=== PATIENT | male | born 1945 | race Caucasian/White ===

== ENCOUNTER 2024-01-25 05:57 | Observation (INO) ==
--- NOTE | 2023-12-23 11:03 | PAT Medication Instructions ---
Medication Instructions Date of Service December 23, 2023 Home Medications ascorbic acid (vitamin C) 500 mg tablet (Vitamin C) 500 mg PO BID aspirin 81 mg capsule 81 mg PO QAM atorvastatin 40 mg tablet 40 mg PO HS buspirone 10 mg tablet 10 mg PO BID cholecalciferol (vitamin D3) 50 mcg (2,000 unit) capsule (Vitamin D3) 50 mcg PO QAM cyanocobalamin (vitamin B-12) 1,000 mcg tablet (Vitamin B-12) 1,000 mcg PO QAM empagliflozin 25 mg tablet (Jardiance) 25 mg PO QAM glipizide 5 mg tablet, extended release 24 hr 5 mg PO QAM lisinopril 5 mg tablet 5 mg PO BID metformin 1,000 mg tablet 1,000 mg PO BID pioglitazone 45 mg tablet 45 mg PO QAM semaglutide 1 mg/dose (4 mg/3 mL) subcutaneous pen injector (Ozempic) 4 mg subcut Q7D tamsulosin 0.4 mg capsule 0.4 mg PO QAM STOP 7 days before surgery semaglutide 1 mg/dose (4 mg/3 mL) subcutaneous pen injector (Ozempic) 4 mg subcut Q7D STOP 3 days before surgery empagliflozin 25 mg tablet (Jardiance) 25 mg PO QAM ASK your prescriber and surgeon aspirin 81 mg capsule 81 mg PO QAM DO NOT take the morning of surgery ascorbic acid (vitamin C) 500 mg tablet (Vitamin C) 500 mg PO BID cholecalciferol (vitamin D3) 50 mcg (2,000 unit) capsule (Vitamin D3) 50 mcg PO QAM cyanocobalamin (vitamin B-12) 1,000 mcg tablet (Vitamin B-12) 1,000 mcg PO QAM glipizide 5 mg tablet, extended release 24 hr 5 mg PO QAM lisinopril 5 mg tablet 5 mg PO BID metformin 1,000 mg tablet 1,000 mg PO BID pioglitazone 45 mg tablet 45 mg PO QAM Take morning of surgery With a small sip of water, OTHERWISE NOTHING TO EAT OR DRINK AFTER MIDNIGHT: buspirone 10 mg tablet 10 mg PO BID tamsulosin 0.4 mg capsule 0.4 mg PO QAM Take evening before surgery ascorbic acid (vitamin C) 500 mg tablet (Vitamin C) 500 mg PO BID atorvastatin 40 mg tablet 40 mg PO HS buspirone 10 mg tablet 10 mg PO BID lisinopril 5 mg tablet 5 mg PO BID metformin 1,000 mg tablet 1,000 mg PO BID Other Notes If you have any questions please call us at [phone] or [phone] or [phone] or [phone]
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
[2024-01-25] MEDS ORDERED: BUPIVACAINE 0.5 % 5 MG/1 ML PF 10ML VIAL ONE (06:27)
[2024-01-25] MEDS ORDERED: ROPIVACAINE 0.5% 5 MG/ML 30 ML VIAL ONE (06:28)
--- NOTE | 2024-01-25 06:36 | History & Physical Bridge Note ---
Date of Service January 25, 2024 History & Physical Bridge Note I have examined the patient, reviewed the History & Physical and in the interval since the performance of the History & Physical I have noted the following changes of clinical significance: no changes noted
[2024-01-25] MEDS: ACETAMINOPHEN 500 MG TAB PO SCH ×2 (07:07→14:44)
[2024-01-25] MEDS: METOCLOPRAMIDE HCL 10 MG TABLET PO SCH (07:08)
[2024-01-25] MEDS: FAMOTIDINE 20 MG TAB PO SCH (07:08)
[2024-01-25] MEDS: CeleBREX 200 MG CAP PO SCH (07:08)
[2024-01-25] MEDS: LR 60ML/HR IV SCH (07:08)
[2024-01-25] MEDS ORDERED: PROPOFOL IV EMULSION 10 MG/ML 20 ML VIAL IV ONE (07:12)
[2024-01-25] MEDS ORDERED: fentaNYL citrate PF 100 MCG/2 ML VIAL ONE (07:12)
[2024-01-25] MEDS ORDERED: MIDAZOLAM HCL 1 MG/ML 2ML VIAL ONE ×2 (07:12→07:37)
[2024-01-25] MEDS: LR 500ML BOLUS, THEN 15ML/HR IV SCH (07:25)
[2024-01-25] MEDS ORDERED: ePHEDrine sulfate 50 MG/ML AMP IV PRN (08:47)
[2024-01-25] MEDS ORDERED: HYDROmorphone INJ 1 MG/ML SYRINGE IV PRN (08:47)
[2024-01-25] MEDS ORDERED: ATROPINE SULFATE 0.1 MG/ML 10ML SYR IV PRN (08:47)
[2024-01-25] MEDS ORDERED: fentaNYL citrate PF 100 MCG/2 ML VIAL IV PRN (08:47)
[2024-01-25] MEDS ORDERED: ONDANSETRON INJ 2 MG/ML 2 ML VIAL IV PRN ×2 (08:47→11:27)
[2024-01-25] MEDS: ceFAZolin 2000MG 2,000 MG/15 ML SYR IV SCH ×2 (08:55→16:37)
[2024-01-25] MEDS: TRANEXAMIC ACID 1,000 MG **IV Intra-op IV SCH (09:48)
[2024-01-25] MEDS: ORTHO JOINT ANESTHETIC ONE (09:50)
[2024-01-25] MEDS: ROPIV 0.5% 246mg, Ketorolac 30mg, EPINEPHrine 0.5mg in NSS INFIL SCH (09:50)
--- NOTE | 2024-01-25 10:42 | Operative Report ---
PG Post Operative Report Pre & Post Diagnosis Operation Date: 01/25/24 08:50 Pre-Op Diagnosis: Right Knee Degenerative Joint Disease Post-Op Diagnosis: Right Knee Degenerative Joint Disease I identified the patient and participated in the time-out.: Yes Procedure Operation Date: 01/25/24 08:50 Actual Procedures p Right Total Knee Arthroplasty(Right) - Tonny Harris MD Surgeon Tonny Harris MD Manager Parking Jimenez Thomas PA-C Estimated Blood Loss 50 Findings Consistent with Post-Op Diagnosis Specimens Right knee sent for pathology. Anesthesia Type Spinal MAC Complications none Disposition Accompanied Patient To Recovery: No Indications Patient is a 78-year-old gentleman whose had a long history of gradual progressive increasing right knee pain and discomfort. He has been through extensive conservative treatment the past which became less successful. X-rays show advanced medial compartment arthritis. He elected proceed with surgical treatment. Description of Procedure Operative implants consists of: 1. Biomet Vanguard size 67.5 right posterior stabilized femoral component. 2. Biomet size 75 tibial tray. 3. 10 mm posterior stabilized polyethylene plus insert. 4. 31 x 8 all poly patella. The patient was taken the operating, identified, placed on the operating table in the supine position. All contact areas were appropriately padded. IV antibiotics tried by anesthesia team. A spinal anesthetic and adductor canal block had been provided in the holding area. A right thigh turn was then placed. The right lower extremity was then prepped and draped in usual sterile fashion. The right leg was elevated and exsanguinated with use of an Esmarch and a tourniquet was placed at 300 mmHg. An anterior approach of the right knee was then performed to longitudinal incision centered over the patella. Sharp dissection was got through subcutaneous tissue down to level of the extensor mechanism. A medial parapatellar arthrotomy incision was made. Some subpe riosteal dissection was carried out medially. The fat pad was resected from the patella tendon. Lateral patellofemoral ligament was released. The patella was subluxated laterally and the knee was flexed. The osteophytes taken off distal femur. The ACL and PCL were then released from the distal femur and the tibia subluxated anteriorly. The external treatment LYMErix then placed on the anteri or face the tibia and adjusted 14 mm medially. Proximal tibial cut was made remove out of millimeter bone from the most efficient aspect medial tibial plateau. Some osteophytes were taken off medially. The tibia was then sized to a size 75. The AP cutting block was pinned parallel to the epicondylar axis. The epicondylar axis was 3 degrees of external rotation. The anterior cut, anterior chamfer, posterior cut, posterior chamfer cuts were made. The box cutting guide was placed and adjusted slightly laterally. The box cut was made. The knee was flexed. The remnants of the medial and lateral menisci were excised. The osteophytes taken off the posterior aspect the femur. A trial femoral component was placed. The tibial tray was pinned Kellie external rotation and the drill and stem punch were used to create defect in proximal tibia for the tibial tray. The knee was then trialed and the 10 mm insert fit most appropriately. There is a little bit of laxity in extension due to his varus deformity preoperatively if so we elect to use a PS plus insert. Attention drawn the patella. The patella was cleaned of all soft tissues. Patella thickness measured 21 mm in thickness was cut down to 13. Was sized to a size 31 patella. The lug holes were drilled for 31 patella. The lateral osteophytes removed. Patella button was placed. Knee was taken through range of motion and the patella tracked nicely with no thumbs test. Attention was then drawn toward placing the permanent components. All trial components were removed. Bone plug was placed into this femur limit blood loss. A double batch Palacos G cement was mixed. Biomet Vanguard size 67.5 right posterior stabilized femoral component, size 75 tibial tray, a 10 mm PS plus insert, and a 31 x 8 all poly patella then cemented in place. The knee was brought out into full extension till cement hardened. Final cement check was then performed. The pericapsular tissues were injected with total 100 cc of Ortho mix. The patient did receive 1 g tranexamic acid. The tourniquet was then let down for final tourniquet time 55 minutes. Hemostasis assured with electrocautery. Extensor Metros then closed with combination 1 PDS suture and 1 Vicryl suture in a [id number] fashion. Extensor Meclomen checked found be intact. Subcutaneous tissue then closed with 2 Dexon suture in a buried interrupted fashion skin was closed skin danielle. Leg was then cleaned and dried and a sterile dressing with Xeroform, 4 fours, sterile cast padding, Babak bandage were applied. The patient was then transferred to the recovery room in stable condition. Patient tolerated procedure well and there were no complications. Jimenez Thomas, my physician child development assistant, was present for the entire procedure. His assistance was essential and required for appropriate patient positioning, prepping and draping, surgical exposure, performing the technical details of the operation, placement the implants, closure of the wound, and placement of the sterile bandage. I attest to the content of the Intraoperative Record and any orders documented therein. Any exceptions are noted below.
--- NOTE | 2024-01-25 11:02 | XRay Report ---
XR knee RT 1 or 2V routine HISTORY: 78 years-old Male Surgical Post Op right knee arthroplasty COMPARISON: 11/25/2023 TECHNIQUE: 2 views of the right knee FINDINGS: Total joint arthroplasty with patellar resurfacing. Anterior midline skin danielle with expected posto perative soft tissue swelling and deep tissue air. No acute fracture or unexpected opaque foreign bod y. IMPRESSION: Total joint arthroplasty with expected postoperative changes. ACT 112: Negative or not required by law. The above report was generated using voice recognition software. It may contain grammatical, syntax o r spelling errors. Electronically signed by: Hardik Rashid M.D. 01/25/2024 11:01 AM
[2024-01-25] MEDS ORDERED: PHARMACY GLYCEMIC MGMT CONSULT PRN (11:27)
[2024-01-25] MEDS ORDERED: HYDROmorphone INJ 0.5 MG/0.5 ML SYR IV PRN (11:27)
[2024-01-25] MEDS ORDERED: bisacodyL 10 MG SUPP PR PRN (11:27)
[2024-01-25] MEDS ORDERED: NALOXONE HCL 0.4 MG/1 ML VIAL/CARP IV PRN (11:27)
[2024-01-25] MEDS ORDERED: GLUCAGON FOR INJ 1 MG VIAL SQ PRN (11:27)
[2024-01-25] MEDS ORDERED: GLUCOSE 10 TAB/TUBE PO PRN (11:27)
[2024-01-25] MEDS ORDERED: MAGNESIUM HYDROXIDE SUSP 30 ML UDC PO PRN (11:27)
[2024-01-25] MEDS ORDERED: GLUCOSE 40% GEL 15 GM TUBE PO PRN (11:27)
[2024-01-25] MEDS ORDERED: CARBOHYDRATES FOR HYPOGLYCEMIA PO PRN (11:27)
[2024-01-25] MEDS ORDERED: ALUMINUM/MAGNESIUM SUSP 30 ML UDC PO PRN (11:27)
[2024-01-25] MEDS ORDERED: METOCLOPRAMIDE HCL INJ 5 MG/ML 2 ML VIAL IV PRN (11:27)
[2024-01-25] MEDS ORDERED: DEXTROSE 50% 50 ML SYRINGE IV PRN (11:27)
[2024-01-25] MEDS: INSULIN ASPART PER UNIT CHARGE SC SCH (12:40)
[2024-01-25] MEDS: LANTUS PER UNIT CHARGE SC ONE (12:40)
[2024-01-25] MEDS: KETOROLAC TROMETHAMINE 15 MG/ML VIAL IV SCH (12:41)
--- NOTE | 2024-01-25 14:27 | Pharmacy Report ---
Pharmacy Glycemic Short Note 2 - Date of Service January 25, 2024 - Glycemic Short BSG Results (Last 24 hours): 01/25/24 01/25/24 01/25/24 07:01 10:40 11:37 POC Glucose 188 H 162 H 177 H OUTPATIENT ANTIDIABETIC REGIMEN: * Jardiance 25 mg daily, glipizide 5 mg daily, metformin 1 gm bid, pioglitazone 45 mg daily, ozempic ASSESSMENT: * 78 year old s/p surgery, POD 0 - pharmacy consulted for glycemic management. Postop BSG >170 - will start novolog weight based stress 2 dosing. Will give one time dose of Lantus 0.2 units/kg. Patient on several oral medications at home - will hold for now and utilize both basal/bolus during hospital stay. PLAN FOR INPATIENT GLYCEMIC CONTROL: * Hold outpatient oral diabetes medications * Basal insulin * Lantus 15 units x 1 * Bolus insulin * NovoLog per scale ACHS or Q6hrs while NPO * Goal Range: Low 110 mg/dL - High 140 mg/dL * Correction Factor: 25 mg/dL/unit * Nutritional / Prandial insulin per carb ratio of 1 unit per 8 grams CHO consumed
--- NOTE | 2024-01-25 15:06 | Anesthesiology Progress Note ---
Date of Service January 25, 2024 Anesthesia Post Procedure Vital Signs Vital Signs: Temp Pulse Pulse Resp BP Pulse Ox O2 Del Method 01/25/24 14:20 36.6 C 55 L 18 128/58 L 98 Room Air 01/25/24 13:22 36.6 C 54 L 16 122/59 L 97 Room Air 01/25/24 12:25 36.4 C L 54 L 18 122/65 95 Room Air 01/25/24 11:53 36.4 C L 54 L 18 126/69 97 Room Air 01/25/24 11:25 36.7 C 53 L 18 112/59 L 97 Room Air 01/25/24 11:05 36.2 C L 58 L 14 112/52 L 96 Room Air 01/25/24 10:55 36.2 C L 64 18 125/53 L 97 Oxymask 01/25/24 10:45 58 L 16 100/49 L 97 Oxymask 01/25/24 10:35 36.2 C L 63 14 98/51 L 96 Oxymask 01/25/24 06:40 36.7 C 66 20 136/62 95 Room Air O2 Flow Rate 01/25/24 14:20 01/25/24 13:22 01/25/24 12:25 01/25/24 11:53 01/25/24 11:25 01/25/24 11:05 01/25/24 10:55 1 01/25/24 10:45 3 01/25/24 10:35 5 01/25/24 06:40 Pain Intensity Right Knee: Pain Intensity: 1 Transfer of Care Handoff Completed per policy Notes Mental Status: alert / awake / arousable and participated in evaluation Nausea / Vomiting: adequately controlled Pain: adequately controlled Airway Patency, RR, SpO2: stable & adequate BP & HR: stable & adequate Hydration State: stable & adequate Anesthetic Complications: no major complications apparent and Pt Satisfied with anesthetic care
[2024-01-25] MEDS: TRANEXAMIC ACID / 0.7% NACL 1,000 MG/100 ML BAG IV SCH (16:25)
[2024-01-25] MEDS: busPIRone 5 MG TAB PO SCH (20:31)
[2024-01-25] MEDS: DOCUSATE SODIUM 100 MG CAP PO SCH (20:32)
[2024-01-25] MEDS: SENNA 8.6 MG TAB PO SCH (20:32)
[2024-01-25] MEDS: ASPIRIN 81 MG ECTAB PO SCH (20:33)
[2024-01-25] MEDS: ATORVASTATIN 40 MG TAB PO SCH (20:33)
[2024-01-25] MEDS: lisinopril 5 MG TAB PO SCH (20:34)
[2024-01-25] MEDS: ASCORBIC ACID 500 MG TAB PO SCH (20:34)
[2024-01-25] MEDS: oxyCODONE HCL IR 5 MG TAB (IMMEDIATE RELEASE) PO PRN (20:34)
[2024-01-25] MEDS ORDERED: SENNA 8.6 MG TAB PO SCH (21:00)
[2024-01-25 21:39] VITALS: RESP 16
[2024-01-26] MEDS ORDERED: MELATONIN 3 MG TAB PO PRN (01:38)
[2024-01-26 05:50] LABS: Hematocrit (blood only) 33.7 % (42.0-52.0); Hemoglobin 11.3 g/dl (14.0-18.0); Mean Corpuscular Hemoglobin 31.9 pg (25.0-34.0); Mean Corpuscular Hgb Conc 33.5 g/dL (32.0-36.0); Mean Corpuscular Volume 95.2 fL (80.0-100.0); Mean Platelet Volume 9.2 fL (9.4-12.4); Platelet Count 149 K/uL (130-400); RDW Coefficient of Variation 15.1 % (11.5-14.5); RDW Standard Deviation 52.4 fL (36.4-46.3); Red Blood Count 3.54 M/uL (4.70-6.10); White Blood Count 11.44 K/ul (4.8-10.8)
[2024-01-26 06:05] LABS: BUN Creatinine Ratio 28.9 (10-20); Calcium 8.6 mg/dl (8.6-10.3); Creatinine Clr Calc Pharmacy 89.3 ml/min; Potassium 3.7 mmol/L (3.5-5.1)
[2024-01-26 06:57] VITALS: PULSE 66; TEMP 98.4; O2SAT 97
--- NOTE | 2024-01-26 07:12 | Orthopedic Progress Note ---
Date of Service January 26, 2024 Assessment & Plan (1) Status post right knee replacement: Plan: 78-year-old gentleman postop day 1 from right knee replacement. He is doing reasonably well. His pain has been controlled. He is neurologically intact. Plan: 1. DVT prophylaxis including thigh-high teds, SCDs, aspirin twice a day. 2. PT/OT. Weight-bear as tolerated. Right total knee protocol. 3. Pain control. Doing okay with current pain regimen. 4. Disposition. Plan to discharge to home with some home health if he does okay in therapy today. Admission and Anticipated Discharge Date Admission Date: January 25, 2024 Subjective 78-year-old gentleman postop day 1 from a right knee replacement. He is doing okay. Did not get much sleep last night. Pains been pretty well-controlled. No chest pain or shortness of breath. Not feeling dizzy or lightheaded. Physical Exam Physical Exam: Physical nation was a pleasant middle-age male. He is lying bed looks pretty comfortable. Examination of the right leg reveals leg to be well aligned. Dressings clean dry and intact. He can dorsiflex and plantarflex his foot appropriately. He is neurologically intact. Respiratory: normal respiratory effort, lungs clear to auscultation Cardiovascular: RRR, no murmur, no edema Gastrointestinal (Abdomen): normal bowel sounds, soft, nontender, no hepatosplenomegaly Results & Data Vital Signs (Past 12 Hours) Vital Signs Temp Pulse Resp BP BP Pulse Ox O2 Del Method 01/26/24 06:54 36.9 C 66 16 131/57 L 97 Room Air 01/26/24 03:00 36.8 C 55 L 16 138/73 96 Room Air 01/25/24 23:13 36.3 C L 54 L 16 122/64 97 CPAP 01/25/24 21:40 CPAP 01/25/24 20:22 36.6 C 60 16 137/61 95 Room Air Laboratory Results Hemoglobin is 11.3. Hematocrit is 33.7. Electrolytes are stable.
[2024-01-26] MEDS: dexAMETHasone 10 MG in SYRINGE 0 ML IV SCH (07:32)
[2024-01-26] MEDS: MULTIVITAMIN TAB PO SCH (08:21)
[2024-01-26] MEDS: CYANOCOBALAMIN (B-12) 500 MCG TABLET PO SCH (08:22)
[2024-01-26] MEDS: TAMSULOSIN HCL 0.4 MG CAP PO SCH (08:22)
[2024-01-26] MEDS: CHOLECALCIFEROL 25 MCG (1000 UNITS) TAB PO SCH (08:22)
[2024-01-26] MEDS: LANTUS PER UNIT CHARGE SC SCH (08:30)
[2024-01-26] MEDS ORDERED: PIOGLITAZONE 45 MG PO SCH (09:00)
[2024-01-26] MEDS ORDERED: TAMSULOSIN HCL 0.4 MG CAP PO SCH (09:00)
[2024-01-26] MEDS ORDERED: EMPAGLIFLOZIN 25 MG TAB PO SCH (09:00)
[2024-01-26 10:08] VITALS: BP 137/61
--- NOTE | 2024-01-28 06:54 | Discharge Summary ---
Date of Service January 28, 2024 Admission HPI (Per Admitting) . The patient is a 78-year-old gentleman now presents for surgical treatment of his right knee. He is got a several history of increasing right knee pain discomfort that is gradually gotten worse over time. He has been treated by Dr. Austin most recently with an injection which helped him just for a couple days. Pain is mostly medial. Is getting worse. It is limiting his activities. He cannot walk more than a couple blocks without significant pain. He would like to proceed with a right knee replacement. Of note, the patient has a history of the left ankle arthritis and had a left ankle fusion done by myself about 12 years ago. He is done well from this. Admission Exam (Per Admitting) . Physical examination of reveals a pleasant healthy appearing male. Looks to be in pretty good health. Examination of the right knee reveal patient ambulates independently. Got varus alignment to his knee. He does have a varus thrust with weightbearing. He is tender over the medial joint line. She got some bony hypertrophy medially. Small knee effusion. Range of motion about 10 degrees show full extension to 120 degrees of flexion. No instability. No particular pain with hip motion. He is neurologically intact. Principal Diagnosis Same as "Discharge Diagnosis" noted below under Discharge Instructions. Discharge Data Procedures Performed Operation Date: 01/25/24 08:50 Actual Procedures p Right Total Knee Arthroplasty(Right) - Tonny Harris MD Ordered Studies 01/25/24 05:00 US - OR guided needle placemen Routine Hospital Course (1) Status post right knee replacement: This is a 78 year old patient admitted on 01/25/24 and underwent total knee arthroplasty. He tolerated the procedure well and there were no complications. Transferred to the PACU post op and later to the orthopedic floor for further care. He was given ancef for antibiotic prophylaxis. He was also given YU st ockings, SCDs, and aspirin for DVT prophylaxis. Hemoglobin, hematocrit, and vital signs were monitored during his hospital stay and remained stable. Did not require any blood transfusions. There were no complications during his hospital stay. By post op day #1 the patient was tolerating a diabetic diet, pain was reasonably controlled with oral pain medicine, and he was participating in physical therapy. On post op day #1 the patient was discharged home and set up with home health care. He was given printed discharge instructions including prescriptions for extra strength tylenol, aspirin, cefadroxil, ketorolac, zofran, oxycodone, senokot, and flomax. Continue physical therapy, weight bearing as tolerated. Continue YU stockings. Follow up approximately 2 weeks post op or sooner if there are problems or concerns. Discharge Plan Discharge Items Patient Disposition: Home - Home Health Services Reason For Visit: Right Knee Osteoarthritis Discharge Diagnosis: Right Knee Replacment Activity: Per Instructions section Weightbearing: Full weightbearing Non-emergency contact: Surgeon Call non-emergency contact if: you have any medication questions Follow-up/Referrals: PCP,NO [Physician] - Diet: Carb Consistent or DM2 Addtl Attending Provider Instructions: ACTIVITY RECOMMENDATIONS: Diet: * You may resume previous diet. Physical Therapy: * You will go to physical therapy three times each week for four to six weeks after your surgery in order to regain your knee range of motion and to retrain your knee to work properly. * It is just as important to make sure you are getting your knee perfectly straight as it is to regain your knee bend. * Taking a pain pill an hour before therapy can help you have a more productive and comfortable therapy session. Home Exercise: * You were shown a series of exercises (heel props, heel slides, etc.) in the hospital. Do these exercises three to four times each day including the exercises you were shown in physical therapy. Walking: * Get up and walk several times each day. For the first four weeks, try not to stand or walk for more than one hour at a time. If you do stand or walk for more than one hour, you will not hurt anything, but your knee and leg will likely swell. * As you feel comfortable, you may change from the walker or crutches to a cane and then to independent walking. MEDICATIONS: New Medicine: * You will likely be taking one or more of these medications: 1. Oxycodone - A quick and shorter-acting pain medication. Take one to two tablets every six hours to lessen your pain. 2. Aspirin - Thins your blood to lessen the chance of forming a blood clot. * The most common side effects of pain medicine and iron are nausea and constipation. If nausea or constipation is too much of a problem or if you have any questions about your new medicines or doses, call [facility] at . We will try to help you manage these issues. "VERY IMPORTANT TO READ AND REVIEW" Pain: * The immediate post-operative period after knee replacement surgery is often quite painful. * You are given a prescription for pain medicine. You should take it, as directed, when you need it, especially before physical therapy and before going to bed. Pain that interferes with sleep is very common and can last several months. * You will likely need pain medicine for the first four to six weeks. It will not stop all of the pain. The pain will lessen and as you feel better, you may change to milder pain medicine such as Tylenol. * The most common side effects of pain medicine are nausea and constipation, so don't take more than you need. SPECIAL CARE INSTRUCTIONS: TEDs/Elastic Stockings: * The white elastic stockings help limit swelling and prevent blood clots from forming in your legs. The more you wear them, the more they work. * Wear them for six weeks after knee replacement surgery and four weeks after partial knee replacement. Incision Site Care: * Remove dressing postoperative day 2 and then shower. Keep direct shower pressure off the incision site. * After showering, cover danielle with dry gauze and change daily or more frequently if the dressing is getting saturated with drainage. * Use the YU stockings to hold dressing in place. DO NOT apply tape on the skin. * May completely stop using bandage if wound is dry and no drainage * Danielle are removed between 2 and 3 weeks post-op. If your follow-up appointment is made before 2 weeks, please have your appointment re- scheduled. It is too early to remove the danielle. Prevention of Infection: * Take antibiotics one hour before any dental cleaning, dental work, urological procedure, gastrointestinal procedure or any invasive surgery in order to prevent your new joint from getting infected. * You may get the antibiotics from the doctor performing the procedure or you may call our office at [phone] before and we will call in a prescription to the pharmacy of your choice. Things to Watch For: * Drainage from the incision site that occurs more than one week after your surgery. * Severely increased knee/leg pain or swelling. * Increased redness at the incision site. * Fever above 102 degrees Fahrenheit. * Unusual chest pain or shortness of breath. * Unusual pain or burning with urination. Call [facility] at [phone] with any of the above problems or if you have any questions about your medicines or recovery. FOLLOW UP VISIT: Make an appointment to see your doctor for approximately two weeks after surgery for a progress check and staple removal by calling the office at [phone]. Pending Studies at Discharge: No Stand-Alone Forms: My [facility], Smoking Cessation Medications and DC Order Prescriptions: Continued oxycodone 5 mg tablet 5 - 10 mg PO Q6 PRN (Reason: pain) Qty: 40 0RF Rx Instructions: Take as needed for pain ondansetron 4 mg tablet,disintegrating 4 mg PO Q8 PRN (Reason: nausea) Qty: 20 1RF Rx Instructions: Take as needed for nausea ketorolac 10 mg tablet 10 mg PO Q6 5 Days Qty: 20 0RF Rx Instructions: Take 4 times per day with food for 5 days to lessen pain and swelling. sennosides [Senokot] 8.6 mg tablet 8.6 mg PO BID 14 Days Qty: 28 0RF Rx Instructions: Take two times a day to prevent/treat constipation acetaminophen [Tylenol Extra Strength] 500 mg tablet 1,000 mg PO TID 30 Days Qty: 180 0RF Rx Instructions: Take 3 times per day to lessen pain. aspirin [Cameron Low Dose Aspirin] 81 mg tablet,delayed release (DR/EC) 81 mg PO BID 45 Days Qty: 90 0RF Rx Instructions: Take to prevent blood clots. tamsulosin [Flomax] 0.4 mg capsule 0.4 mg PO DAILY Qty: 7 0RF Rx Instructions: Begin night BEFORE surgery to prevent urinary retention cefadroxil 500 mg capsule 500 mg PO BID 7 Days Qty: 14 0RF Rx Instructions: Take 1 cap twice a day to prevent infection atorvastatin 40 mg tablet 40 mg PO HS glipizide 5 mg tablet extended release 24hr 5 mg PO QAM cyanocobalamin (vitamin B-12) [Vitamin B-12] 1,000 mcg Tablet 1,000 mcg PO QAM pioglitazone 45 mg tablet 45 mg PO QAM ascorbic acid (vitamin C) [Vitamin C] 500 mg Tablet 500 mg PO BID tamsulosin 0.4 mg Capsule 0.4 mg PO QAM metformin 1,000 mg Tablet 1,000 mg PO BID buspirone 10 mg tablet 10 mg PO BID lisinopril 5 mg tablet 5 mg PO BID cholecalciferol (vitamin D3) [Vitamin D3] 50 mcg (2,000 unit) Capsule 50 mcg PO QAM Jardiance 25 mg tablet 25 mg PO QAM Ozempic 1 mg/dose (4 mg/3 mL) pen injector 4 mg SUBCUT Q7D Patient Comments: fridays Discontinued aspirin 81 mg Capsule 81 mg PO QAM Admission Data Admit Date/Time: 01/25/24 10:36 Attending Provider: Tonny Harris Admit Provider: Tonny Harris Primary Care Provider: Micki Pena Other Providers: [facility],Home Health Other Interventions: Discharge Summary Assessment (RN) Last Done: 01/26/24 10:07
== END 2024-01-26 10:55 | disposition home health service (06) ==
LOC: ASU 05:57 → 3W 05:57